=== PATIENT | male | born 1970 | race Caucasian/White ===

== ENCOUNTER 2016-11-16 20:00 | Inpatient (IN) | payer OTHER ==
[~2016-11-16] VITALS: Ht 170.2 cm; Wt 107.8 kg
[2016-11-16] MEDS ORDERED: CIPRO 500MG TA500 MG PO (20:11)
[2016-11-16 20:51] LABS: BASO % 0.2 % (0.0-2.0); EOS % 0.1 % (0-4.0); GRAN # 12.8 (1.4-6.5); GRAN % 80.6 % (42.2-75.2); HEMATOCRIT 46.7 % (42.0-52.0); HEMOGLOBIN 16.6 g/dl (13.5-18.0); LYMPH # 1.8 (1.2-3.4); LYMPH % 11.4 % (20.0-51.0); MEAN CELL VOLUME 87 fl (80.0-100.0); MEAN CORPUSCULAR HEMOGLOBIN 31 pg (27.0-31.0); MEAN CORPUSCULAR HGB CONC 36 g/dl (33.0-37.0); MEAN PLATELET VOLUME 9.6 fl (7.4-10.4); MONO # 1.1 (0.1-0.6); MONO % 7.1 % (1.7-9.3); PLATELET COUNT 237 K/mm3 (130-400); RED BLOOD COUNT 5.39 M/mm3 (4.20-5.60); REDCELL DISTRIBUTION WIDTH-CV 12.2 % (11.5-14.5); WHITE BLOOD COUNT 15.9 K/mm3 (4.8-10.8)
[2016-11-16 21:06] LABS: ADJUSTED CALCIUM 9.1 mg/dL (8.4-10.2); ALBUMIN 4.4 gm/dL (3.5-5.0); BILIRUBIN,TOTAL 2.4 mg/dL (0.0-1.0); CALCIUM 9.4 mg/dL (8.4-10.2); CREATININE, serum 1.29 mg/dL (0.66-1.25); POTASSIUM 3.7 mmol/L (3.4-5.0); TOTAL PROTEIN 7.7 gm/dL (6.4-8.2)
[2016-11-16 21:45] LABS: C-REACTIVE PROTEIN 14.7 mg/dL (0.0-0.9)
[2016-11-16 23:35] VITALS: BP 115/73; PULSE 102; TEMP 100.4
[2016-11-17] VITALS (7 sets, daily range): BP systolic 107–134; BP diastolic 58–84; PULSE 105–125; TEMP 98.2–103.2
[2016-11-17 06:37] LABS: HEMATOCRIT 46.4 % (42.0-52.0); HEMOGLOBIN 16.4 g/dl (13.5-18.0); MEAN CELL VOLUME 89 fl (80.0-100.0); MEAN CORPUSCULAR HEMOGLOBIN 31 pg (27.0-31.0); MEAN CORPUSCULAR HGB CONC 35 g/dl (33.0-37.0); MEAN PLATELET VOLUME 9.8 fl (7.4-10.4); PLATELET COUNT 205 K/mm3 (130-400); RED BLOOD COUNT 5.24 M/mm3 (4.20-5.60); REDCELL DISTRIBUTION WIDTH-CV 12.4 % (11.5-14.5); WHITE BLOOD COUNT 11.2 K/mm3 (4.8-10.8)
[2016-11-17 06:47] LABS: ADJUSTED CALCIUM 9.1 mg/dL (8.4-10.2); ALBUMIN 3.7 gm/dL (3.5-5.0); BILIRUBIN,TOTAL 2.7 mg/dL (0.0-1.0); CALCIUM 8.9 mg/dL (8.4-10.2); CREATININE, serum 1.27 mg/dL (0.66-1.25); POTASSIUM 3.5 mmol/L (3.4-5.0); TOTAL PROTEIN 6.7 gm/dL (6.4-8.2)
[2016-11-17 06:56] LABS: ADD PATHOLOGY DIFF REVIEW NO
[2016-11-17 07:31] LABS: BAND 34 % (0-10); NEUTROPHILS 50 % (42.0-75.2); TOTAL CELLS COUNTED 100
[2016-11-17 07:35] LABS: PLATELET ESTIMATE NORMAL (NORMAL)
[2016-11-18] VITALS (8 sets, daily range): BP systolic 103–129; BP diastolic 61–76; PULSE 94–120; TEMP 98.9–102.1
[2016-11-18 06:40] LABS: HEMATOCRIT 45.6 % (42.0-52.0); HEMOGLOBIN 15.5 g/dl (13.5-18.0); MEAN CELL VOLUME 90 fl (80.0-100.0); MEAN CORPUSCULAR HEMOGLOBIN 31 pg (27.0-31.0); MEAN CORPUSCULAR HGB CONC 34 g/dl (33.0-37.0); MEAN PLATELET VOLUME 10.2 fl (7.4-10.4); PLATELET COUNT 196 K/mm3 (130-400); RED BLOOD COUNT 5.08 M/mm3 (4.20-5.60); REDCELL DISTRIBUTION WIDTH-CV 12.7 % (11.5-14.5); WHITE BLOOD COUNT 12.1 K/mm3 (4.8-10.8)
[2016-11-18 06:52] LABS: CALCIUM 8.7 mg/dL (8.4-10.2); CREATININE, serum 1.64 mg/dL (0.66-1.25); POTASSIUM 3.6 mmol/L (3.4-5.0)
[2016-11-19] VITALS (7 sets, daily range): BP systolic 109–135; BP diastolic 65–83; PULSE 83–107; TEMP 97.5–101
[2016-11-19 11:15] LABS: BASO % 0.3 % (0.0-2.0); EOS # 0.1 (0.0-0.7); EOS % 0.9 % (0-4.0); GRAN # 10.2 (1.4-6.5); GRAN % 82.5 % (42.2-75.2); HEMATOCRIT 42.2 % (42.0-52.0); HEMOGLOBIN 14.4 g/dl (13.5-18.0); LYMPH # 1.2 (1.2-3.4); LYMPH % 9.3 % (20.0-51.0); MEAN CELL VOLUME 90 fl (80.0-100.0); MEAN CORPUSCULAR HEMOGLOBIN 31 pg (27.0-31.0); MEAN CORPUSCULAR HGB CONC 34 g/dl (33.0-37.0); MEAN PLATELET VOLUME 9.9 fl (7.4-10.4); MONO # 0.8 (0.1-0.6); MONO % 6.3 % (1.7-9.3); PLATELET COUNT 189 K/mm3 (130-400); WHITE BLOOD COUNT 12.4 K/mm3 (4.8-10.8)
[2016-11-19 11:26] LABS: CALCIUM 8.5 mg/dL (8.4-10.2); CREATININE, serum 1.43 mg/dL (0.66-1.25); POTASSIUM 3.6 mmol/L (3.4-5.0)
[2016-11-20] VITALS (7 sets, daily range): BP systolic 121–133; BP diastolic 72–83; PULSE 79–94; TEMP 98–99.4
[2016-11-20 07:16] LABS: BASO % 0.3 % (0.0-2.0); EOS # 0.3 (0.0-0.7); EOS % 2.6 % (0-4.0); GRAN # 8.3 (1.4-6.5); GRAN % 75.2 % (42.2-75.2); HEMATOCRIT 37.4 % (42.0-52.0); HEMOGLOBIN 12.8 g/dl (13.5-18.0); LYMPH # 1.4 (1.2-3.4); LYMPH % 12.8 % (20.0-51.0); MEAN CELL VOLUME 89 fl (80.0-100.0); MEAN CORPUSCULAR HEMOGLOBIN 31 pg (27.0-31.0); MEAN CORPUSCULAR HGB CONC 34 g/dl (33.0-37.0); MEAN PLATELET VOLUME 9.6 fl (7.4-10.4); MONO # 0.9 (0.1-0.6); MONO % 8.5 % (1.7-9.3); PLATELET COUNT 200 K/mm3 (130-400); REDCELL DISTRIBUTION WIDTH-CV 13.1 % (11.5-14.5); WHITE BLOOD COUNT 11.1 K/mm3 (4.8-10.8)
[2016-11-20 07:22] LABS: ALBUMIN 2.8 gm/dL (3.5-5.0); CREATININE, serum 1.16 mg/dL (0.66-1.25); PHOSPHOROUS 2.3 mg/dL (2.5-4.5); POTASSIUM 3.3 mmol/L (3.4-5.0)
[2016-11-21 06:20] VITALS: BP 142/81; PULSE 80; TEMP 98.9
[2016-11-21 06:31] VITALS: BP 127/79; PULSE 77; TEMP 98.9
[2016-11-21 10:03] VITALS: BP 120/69; PULSE 78; TEMP 98.5
[2016-11-21 13:23] VITALS: BP 119/69; PULSE 72; TEMP 98.2
[2016-11-21 13:43] LABS: HEMATOCRIT 38.8 % (42.0-52.0); HEMOGLOBIN 13.3 g/dl (13.5-18.0); MEAN CELL VOLUME 89 fl (80.0-100.0); MEAN CORPUSCULAR HEMOGLOBIN 31 pg (27.0-31.0); MEAN CORPUSCULAR HGB CONC 34 g/dl (33.0-37.0); MEAN PLATELET VOLUME 9.7 fl (7.4-10.4); PLATELET COUNT 205 K/mm3 (130-400); RED BLOOD COUNT 4.36 M/mm3 (4.20-5.60); REDCELL DISTRIBUTION WIDTH-CV 13.2 % (11.5-14.5); WHITE BLOOD COUNT 8.9 K/mm3 (4.8-10.8)
[2016-11-21 13:45] LABS: CREATININE, serum 1.01 mg/dL (0.66-1.25); POTASSIUM 3.4 mmol/L (3.4-5.0)
[2016-11-21 13:54] LABS: ADD PATHOLOGY DIFF REVIEW NO
[2016-11-21 14:37] LABS: BAND 13 % (0-10); EOSINOPHIL 1 % (0-4); NEUTROPHILS 53 % (42.0-75.2); TOTAL CELLS COUNTED 100
[2016-11-21 14:38] LABS: PLATELET ESTIMATE NORMAL (NORMAL)
[2016-11-21 17:10] VITALS: BP 134/81; PULSE 80; TEMP 99.4
[2016-11-21 23:06] VITALS: BP 128/78; PULSE 77; TEMP 99.1
[2016-11-22 04:57] VITALS: BP 123/81; PULSE 78; TEMP 98.8
[2016-11-22 10:23] VITALS: BP 126/86; PULSE 73; PULSE 89; TEMP 97.5; TEMP 98.2
[2016-11-22] MEDS ORDERED: AMOXICILLIN 8751 TAB PO (10:27)
== END 2016-11-22 11:05 | disposition home or self-care (01) | DRG 372 ==
LOC: COL.ER 20:00 → SURG 22:05
PROVIDERS: Emergency Medicine; Surgery
DX: K35.2 Acute appendicitis with generalized peritonitis (principal); K52.1 Toxic gastroenteritis and colitis; T36.0X5A Adverse effect of penicillins, initial encounter
CPT/HCPCS: A9284; J1170; J1650; J2405; J2543; J7030; J7050; J7120; Q9967